=== PATIENT | female | born 1990 | race American Indian/Alaskan Native ===

== ENCOUNTER 2023-05-30 19:06 | Emergency (ER) | payer OTHER ==
[~2023-05-30] VITALS: Ht 160 cm; Wt 76.7 kg
[2023-05-30 20:33] LABS: BASOPHILS 1.3 % (0-2); EOSINOPHILS 1.5 % (0-6); HEMATOCRIT 38.7 % (35.0-50.0); HEMOGLOBIN 12.5 g/dL (12.0-18.0); MCHC 32.5 g/dl (30-36); MCV 77.1 fl (81-99); MONOCYTES 1.7 % (0-12); NEUTROPHILS 87.5 % (39-80); PLATELET COUNT 366 K/uL (140-440); RBC 5.01 M/ul (4.3-5.7); RDW 14.8 (10.5-15.0)
[2023-05-30 20:49] LABS: ALBUMIN 3.7 g/dL (3.4-5.0); ALBUMIN/GLOBULIN RATIO 0.82 (1.1-2.4); ANION GAP 11.5 (7-21); BILIRUBIN, TOTAL 0.7 ng/dL (0.2-1.0); BUN/CREATININE RATIO 25.86 (6.0-28.6); CALCIUM 8.3 mg/dL (8.5-10.1); CREATININE, SERUM 0.58 mg/dL (0.55-1.02); MAGNESIUM 1.9 mg/dL (1.8-2.4); POTASSIUM 3.5 mmol/L (3.5-5.1); PROTEIN, TOTAL 8.2 g/dL (6.4-8.2)
[2023-05-30 21:11] LABS: BILIRUBIN, URINE NEGATIVE (negative); BLOOD/HGB, URINE NEGATIVE (Negative); KETONE, URINE NEGATIVE (Negative); LEUK ESTERASE, URINE NEGATIVE (negative); NITRITE, URINE NEGATIVE (negative)
[2023-05-30 21:12] LABS: AMPHETAMINES, UR NEGATIVE (NEGATIVE); BARBITURATES, UR NEGATIVE (NEGATIVE); BENZODIAZEPINES, UR NEGATIVE (NEGATIVE); BUPRENORPHINE,UR NEGATIVE (NEGATIVE); COCAINE, UR NEGATIVE (NEGATIVE); MARIJUANA (THC), UR NEGATIVE (NEGATIVE); MDMA, UR NEGATIVE (NEGATIVE); METHADONE, UR NEGATIVE (NEGATIVE); METHAMPHETAMINE, UR NEGATIVE (NEGATIVE); OPIATES, UR NEGATIVE (NEGATIVE); OXYCODONE, UR NEGATIVE (NEGATIVE); PHENCYCLIDINE, UR NEGATIVE (NEGATIVE); TRICYCLIC ANTIDEPRESSANT, UR NEGATIVE (NEGATIVE)
[2023-05-30 21:40] LABS: INFLUENZA B NAA NEGATIVE (NEGATIVE); RESPIRATORY SYNCYTIAL VIR NAA NEGATIVE (NEGATIVE)
[2023-05-30 22:30] VITALS: BP 111/59
== END 2023-05-30 22:30 | disposition home or self-care (01) ==
LOC: ED 19:06
PROVIDERS: Internal Medicine
DX: K52.9 Noninfective gastroenteritis and colitis, unspecified (principal); R42 Dizziness and giddiness; R68.83 Chills (without fever); Z20.822 Contact with and (suspected) exposure to COVID-19
CPT/HCPCS: 36415; 80053; 81003; 83735; 84703; 85025; 87502; 96361; 96374; 96375; 99284-25; A9270; C9803; J1885; J2405; J7121; U0002

== ENCOUNTER 2024-06-27 16:03 | Inpatient (IN) | payer OTHER ==
[~2024-06-27] VITALS: Ht 162.6 cm; Wt 93.4 kg
[~2024-06-27 16:03] MED LIST: CEPHALEXIN500 MG PO; VITAFOL-OB+DHA1 EACH PO
[2024-06-28] MEDS ORDERED: LACTATED RINGER'S 1,000 ML IV SCH (06:00)
[2024-06-28] MEDS ORDERED: CALCIUM CARBONATE 500 MG CHEW PO PRN ×2 (06:00→18:00)
[2024-06-28] MEDS ORDERED: OXYTOCIN/0.9 % SODIUM CHLORIDE 500 ML IV SCH ×2 (06:00→18:00)
[2024-06-28] MEDS ORDERED: PENICILLIN G POTASSIUM 5 MUNITS/110 ML PIGGYBACK IV ONE (06:00)
[2024-06-28] MEDS ORDERED: MAGNESIUM HYDROXIDE/AL HYDROX 30 ML CUP PO PRN ×2 (06:00→18:00)
[2024-06-28] MEDS ORDERED: OXYTOCIN/DEXTROSE 5% 20 UNITS/100 ML BAG IV SCH (06:15)
[2024-06-28] MEDS ORDERED: LACTATED RINGER'S 1,000 ML IV PRN (06:15)
[2024-06-28 06:19] VITALS: BP 116/71
[2024-06-28] MEDS ORDERED: TRANEXAMIC ACID IN NACL,ISO-OS 100 ML IV ONE (06:19)
[2024-06-28 06:49] LABS: HEMATOCRIT 38.9 % (35.0-50.0); HEMOGLOBIN 12.7 g/dL (12.0-18.0); MCH 25.7 (27-36); MCHC 32.7 g/dl (30-36); MCV 78.6 fl (81-99); RBC 4.96 M/ul (4.3-5.7); RDW 17.6 (10.5-15.0)
[2024-06-28 07:12] LABS: AMPHETAMINES, URINE NEGATIVE (NEGATIVE); BARBITURATES, URINE NEGATIVE (NEGATIVE); BENZODIAZEPINE, URINE NEGATIVE (NEGATIVE); BUPRENORPHINE, URINE NEGATIVE (NEGATIVE); CANNABINOID, URINE NEGATIVE (NEGATIVE); COCAINE, URINE NEGATIVE (NEGATIVE); ECSTASY, URINE NEGATIVE (NEGATIVE); FENTANYL, URINE NEGATIVE (NEGATIVE); METHADONE, URINE NEGATIVE (NEGATIVE); OPIATES, URINE NEGATIVE (NEGATIVE); OXYCODONE, URINE NEGATIVE (NEGATIVE); PHENCYCLIDINE, URINE NEGATIVE (NEGATIVE)
[2024-06-28 07:30] LABS: ABO O; RH POSITIVE
[2024-06-28 07:31] LABS: ANTIBODY SCREEN NEGATIVE
[2024-06-28] MEDS ORDERED: PENICILLIN G POTASSIUM 2.5 MUNITS in DEXTROSE 5% 100 ML IV SCH (10:00)
--- NOTE | 2024-06-28 12:27 | PR ---
[facility] [address], [place] [address] Signed Progress Notes IP Datetime Report Generated by CPN: 06/28/2024 12:27 PROGRESS NOTES: [id number] Impression: Reassuring Heart Rate Procedures: Sterile Vag Exam Plan: Anesthesia Consult VITAL SIGNS: [id number] EXAM: [id number] Dilatation: 4.0 Effacement: 80 Station: -2 Contractions: q 2 to 4 min MEMBRANES: [id number] ROM Note: Underware Negative with NItrazine paper Comments: Starting to feel the contractions now. She does want an epidural this time. Will place and then proceed with AROM. FETUS A: [id number] FHR Baseline: 130 Variability: Moderate 6-25bpm Accelerations: 15X15 Decelerations: None FHR Category: Category I Presentation: Vertex FETUS B: [id number] Signing Physician: Rebekah Arndt MD Copies: ~ *Electronically Signed* 06/28/24 1227 REBEKAH ARNDT MD PATIENT NAME: FADI RUIZANA PROGRESS NOTE DATE OF : 89 PHYSICIAN: REBEKAH ARNDT MD RPT #: [id number] REPORT IS CONFIDENTIAL AND NOT TO BE RELEASED WITHOUT AUTHORIZATION
[2024-06-28] MEDS ORDERED: fentaNYL citrate 100 MCG/2 ML VIAL ONE (12:33)
[2024-06-28] MEDS ORDERED: LACTATED RINGER'S 2,000 ML IV ONE (12:45)
[2024-06-28] MEDS ORDERED: ROPIVACAINE 0.2% 200 ML BAG EPIDURAL SCH (12:45)
[2024-06-28] MEDS ORDERED: ePHEDrine sulfate 5 MG/ML SYRINGE IV PRN (12:45)
[2024-06-28] MEDS ORDERED: LACTATED RINGER'S 500 ML IV PRN (12:45)
--- NOTE | 2024-06-28 14:33 | PR ---
[facility] [address] [facility] [place], [place] [address] Signed Progress Notes IP Datetime Report Generated by CPN: 06/28/2024 14:33 PROGRESS NOTES: [id number] Impression: Reassuring Heart Rate Procedures: Artificial ROM; Sterile Vag Exam Plan: Continue Present Management VITAL SIGNS: [id number] EXAM: [id number] Dilatation: 4.0 Effacement: 80 Station: -2 Contractions: q 1 to 5 min MEMBRANES: [id number] ROM Note: Underware Negative with NItrazine paper Comments: Comfortable after epidural. Will continue. FETUS A: [id number] FHR Baseline: 130 Variability: Moderate 6-25bpm Accelerations: 15X15 Decelerations: Variable FHR Category: Category II Presentation: Vertex FETUS B: [id number] Signing Physician: Rebekah Arndt MD Copies: ~ *Electronically Signed* 06/28/24 1433 REBEKAH ARNDT MD PATIENT NAME: ANA GOMES PROGRESS NOTE DATE OF : 89 PHYSICIAN: REBEKAH ARNDT MD RPT #: [id number] REPORT IS CONFIDENTIAL AND NOT TO BE RELEASED WITHOUT AUTHORIZATION
[2024-06-28] MEDS ORDERED: LIDOCAINE 2% VISCOUS 6 ML SYR TOP ONE ×2 (18:00)
[2024-06-28] MEDS ORDERED: WITCH HAZEL/GLYCERIN 1 EA PAD TOP PRN (18:00)
[2024-06-28] MEDS ORDERED: ACETAMINOPHEN 325 MG TAB PO PRN (18:00)
[2024-06-28] MEDS ORDERED: HYDROCODONE/ACETA 5/325 TAB PO PRN (18:00)
[2024-06-28] MEDS ORDERED: MAGNESIUM HYDROXIDE 30 ML UDC PO PRN (18:00)
[2024-06-28] MEDS ORDERED: HYDROCORTISONE ACETATE 25 MG SUPP PR PRN (18:00)
[2024-06-28] MEDS ORDERED: BENZOCAINE 60 ML AEROSOL TOP PRN (18:00)
[2024-06-28] MEDS ORDERED: IBUPROFEN 600 MG TAB PO PRN (18:00)
[2024-06-28] MEDS ORDERED: SENNOSIDES/DOCUSATE 1 EA TAB PO SCH (21:00)
[2024-06-29 06:04] LABS: HEMATOCRIT 34.9 % (35.0-50.0); HEMOGLOBIN 11.4 g/dL (12.0-18.0); MCH 25.7 (27-36); MCHC 32.7 g/dl (30-36); MCV 78.6 fl (81-99); RBC 4.43 M/ul (4.3-5.7); RDW 17.5 (10.5-15.0)
--- NOTE | 2024-06-29 08:35 | PR ---
[facility] [address] [facility] [place], [place] [address] Signed PP Progress Notes Datetime Report Generated by CPN: 06/29/2024 08:35 SUBJECTIVE: [id number] Pain: Within Normal Limits Vital Signs: [id number] Vital Signs: Reviewed; Within Normal Limits Cardiovascular: Not Done Respiratory: Not Done Abdomen/Uterus: Abnormal Lochia: Normal Vulva/Perineum: Not Done Breasts: Not Done CVA Tenderness: Not Done Extremities: Normal Incision: Not Applicable Progress: Normal Exam Comments: Fundus firm, NT @ U-2. H/H 11.4/34.9, WBC 13.3, plat 227k IMPRESSION/PLAN/PROCEDURES: [id number] Impression: Normal Progression Plan: Discharge Procedures: None Progress Notes: Doing well. She is ready for D/C. Signing Physician: Rebekah Arndt MD Copies: ~ *Electronically Signed* 06/29/2435 REBEKAH ARNDT MD PATIENT NAME: ANA GOMES PROGRESS NOTE DATE OF : 89 PHYSICIAN: REBEKAH ARNDT MD RPT #: [id number] REPORT IS CONFIDENTIAL AND NOT TO BE RELEASED WITHOUT AUTHORIZATION
== END 2024-06-29 19:29 | disposition home or self-care (01) | DRG 807 ==
LOC: FBC 06-28 06:01
PROVIDERS: Obstetrics & Gynecology; ADMIT Obstetrics & Gynecology; ATTEND Obstetrics & Gynecology
PROC: 10E0XZZ Delivery of Products of Conception, External Approach (ICD-10-PCS; principal; 2024-06-28)
PROC: 3E0R3BZ Introduction of Anesthetic Agent into Spinal Canal, Percutaneous Approach (ICD-10-PCS; 2024-06-28)
PROC: 00HU33Z Insertion of Infusion Device into Spinal Canal, Percutaneous Approach (ICD-10-PCS; 2024-06-28)
PROC: 10907ZC Drainage of Amniotic Fluid, Therapeutic from Products of Conception, Via Natural or Artificial Opening (ICD-10-PCS; 2024-06-28)
DX: O48.0 Post-term pregnancy (principal); Z37.0 Single live birth; O76 Abnormality in fetal heart rate and rhythm complicating labor and delivery; O99.824 Streptococcus B carrier state complicating childbirth; Z3A.40 40 weeks gestation of pregnancy
CPT/HCPCS: 01960; 36415; 80307; 85027; 86850; 86900; 86901; A9270; J2540; J2590; J7121

== ENCOUNTER 2025-01-24 12:10 | Emergency (ER) | payer OTHER ==
[~2025-01-24] VITALS: Ht 152.4 cm; Wt 86.0 kg
[2025-01-24] MEDS ORDERED: KETOROLAC TROMETHAMINE 15 MG/ML VIAL IV ONE (12:30)
[2025-01-24 12:42] LABS: BASOPHILS 0.4 % (0-2); EOSINOPHILS 3.4 % (0-6); HEMATOCRIT 37.8 % (35.0-50.0); HEMOGLOBIN 12.4 g/dL (12.0-18.0); LYMPHOCYTES 10.5 % (24-44); MCHC 32.8 g/dl (30-36); MCV 73.1 fl (81-99); NEUTROPHILS 82.7 % (39-80); PLATELET COUNT 447 K/uL (140-440); RBC 5.17 M/ul (4.3-5.7); RDW 14.9 (10.5-15.0)
[2025-01-24 13:09] LABS: ALBUMIN 3.5 g/dL (3.4-5.0); ALBUMIN/GLOBULIN RATIO 0.76 (1.1-2.4); ALKALINE PHOSPHATASE 230 U/L (46-116); ALT (SGPT) 40 U/L (14-59); ANION GAP 11.7 (7-21); AST (SGOT) 27 U/L (15-37); BILIRUBIN, TOTAL 0.4 mg/dL (0.2-1.0); BUN/CREATININE RATIO 20.27 (6.0-28.6); CALCIUM 8.2 mg/dL (8.5-10.1); CARBON DIOXIDE 28 mmol/L (21-32); CHLORIDE 104 mmol/L (98-107); CREATININE, SERUM 0.74 mg/dL (0.55-1.02); GLOMERULAR FILTRATION RATE,EST 110 mL/min (>60); POTASSIUM 3.7 mmol/L (3.5-5.1); PROTEIN, TOTAL 8.1 g/dL (6.4-8.2); UREA NITROGEN 15 mg/dL (7-18)
[2025-01-24] MEDS ORDERED: CYCLOBENZAPRINE10 MG PO (13:25)
[2025-01-24 13:35] VITALS: BP 106/68
--- NOTE | 2025-01-24 20:12 | EKG ---
[facility] [address] [facility] [place], [place] [address] Signed Normal sinus rhythm Right axis deviation Abnormal ECG Confirmed by Jesus Hameed DO ([id number]) on 01/24/2025 8:12:03 PM Electronically Signed By: JESUS HAMEED DO 01/24/252011 PATIENT NAME: FADI RUIZANA Electrocardiogram DATE OF : 89 PHYSICIAN: JESUS HAMEED DO REPORT #: [id number] REPORT IS CONFIDENTIAL AND NOT TO BE RELEASED WITHOUT AUTHORIZATION
== END 2025-01-24 13:35 | disposition home or self-care (01) ==
LOC: ED 12:10
PROVIDERS: Family Medicine
DX: R07.89 Other chest pain (principal); Z87.891 Personal history of nicotine dependence
CPT/HCPCS: 36415; 71045; 80053; 83735; 84484; 85025; 93005; 93010; 96374; 99285-25; J1885

== ENCOUNTER 2025-03-19 15:16 | Emergency (ER) | payer OTHER ==
[~2025-03-19] VITALS: Ht 152.4 cm; Wt 87.8 kg
[~2025-03-19 15:16] MED LIST changes: +CYCLOBENZAPRINE10 MG PO
[2025-03-19 17:30] LABS: BASOPHILS 0.5 % (0.1-1.2); EOSINOPHILS 9.3 % (0.7-5.8); HEMATOCRIT 35.5 % (34.1-44.9); HEMOGLOBIN 11.1 g/dL (11.2-15.7); LYMPHOCYTES 17.1 % (19.3-51.7); MCH 23.2 PG (25.6-32.2); MCHC 31.3 g/dL (32.2-35.5); MCV 74.3 fL (79.4-94.8); MONOCYTES 4.5 % (4.7-12.5); NEUTROPHILS 67.3 % (34.0-71.1); PLATELET COUNT 379 K/uL (182-369); RBC 4.78 M/uL (3.93-5.22)
[2025-03-19 17:45] LABS: ALBUMIN 3.1 g/dL (3.4-5.0); ALBUMIN/GLOBULIN RATIO 0.7 (1.1-2.4); ANION GAP 12.5 (7-21); BILIRUBIN, TOTAL 0.3 mg/dL (0.2-1.0); BUN/CREATININE RATIO 22.97 (6.0-28.6); CALCIUM 8.4 mg/dL (8.5-10.1); CREATININE, SERUM 0.74 mg/dL (0.55-1.02); POTASSIUM 3.5 mmol/L (3.5-5.1); PROTEIN, TOTAL 7.5 g/dL (6.4-8.2)
[2025-03-19] MEDS ORDERED: ONDANSETRON ODT4 MG PO (18:49)
[2025-03-19] MEDS ORDERED: ONDANSETRON 4 MG TAB ODT SL ONE (19:00)
[2025-03-19 19:08] VITALS: BP 112/73
--- NOTE | 2025-03-19 22:57 | EKG ---
[facility] [address] [facility] [place] [address] Signed Normal sinus rhythm Normal ECG When compared with ECG of 24-JAN-2025 12:12, No significant change was found Confirmed by Trevor Nielsen MD () on 03/19/2025 10:57:29 PM Electronically Signed By: TREVOR NIELSEN MD 03/19/25 2257 PATIENT NAME: FADI RUIZANA Electrocardiogram DATE OF : 89 PHYSICIAN: TREVOR NIELSEN MD REPORT #: [id number] REPORT IS CONFIDENTIAL AND NOT TO BE RELEASED WITHOUT AUTHORIZATION
== END 2025-03-19 19:14 | disposition home or self-care (01) ==
LOC: ED 15:16
PROVIDERS: Emergency Medicine
DX: B34.9 Viral infection, unspecified (principal); R11.2 Nausea with vomiting, unspecified; Z87.891 Personal history of nicotine dependence
CPT/HCPCS: 36415; 71045; 80053; 85025; 93005; 93010; 99285-25; A9270

== ENCOUNTER 2025-05-19 01:33 | Emergency (ER) | payer OTHER ==
[~2025-05-19] VITALS: Ht 152.4 cm; Wt 87.9 kg
[~2025-05-19 01:33] MED LIST changes: +ONDANSETRON ODT4 MG PO
[2025-05-19] MEDS ORDERED: LACTATED RINGER'S 1,000 ML IV ONE (02:00)
[2025-05-19] MEDS ORDERED: ACETAMINOPHEN 500 MG TAB PO ONE ×2 (02:00→04:45)
[2025-05-19 02:04] LABS: BASOPHILS 0.3 % (0.1-1.2); EOSINOPHILS 3.7 % (0.7-5.8); LYMPHOCYTES 8.8 % (19.3-51.7); MCH 23.0 PG (25.6-32.2); MCHC 30.9 g/dL (32.2-35.5); MCV 74.4 fL (79.4-94.8); MONOCYTES 2.2 % (4.7-12.5); NEUTROPHILS 84.1 % (34.0-71.1); RBC 5.27 M/uL (3.93-5.22)
[2025-05-19] MEDS ORDERED: ALBUTEROL/IPRATROPIUM 3 ML NEB INH ONE (02:15)
[2025-05-19 02:16] LABS: SMEAR REVIEW BLOOD SEE COMMENTS
[2025-05-19 02:23] LABS: LACTIC ACID, BLOOD 0.7 mmol/L (0.4-2.0)
[2025-05-19 02:31] LABS: ALT (SGPT) 43 U/L (14-59); AST (SGOT) 22 U/L (15-37); GLOMERULAR FILTRATION RATE,EST 118 mL/min (>60); PROTEIN, TOTAL 8.3 g/dL (6.4-8.2); UREA NITROGEN 12 mg/dL (7-18)
[2025-05-19] MEDS ORDERED: FAMOTIDINE 20 MG/ 2 ML VIAL IV ONE (02:45)
[2025-05-19 02:47] LABS: INFLUENZA B NAA NEGATIVE (NEGATIVE); RESPIRATORY SYNCYTIAL VIR NAA NEGATIVE (NEGATIVE)
[2025-05-19 03:52] LABS: BLOOD/HGB, URINE TRACE-I (Negative); KETONE, URINE NEGATIVE (Negative); LEUK ESTERASE, URINE SMALL (negative); NITRITE, URINE NEGATIVE (negative)
[2025-05-19 03:57] LABS: EPITHELIAL CELLS, URINE SQUAMOUS 4+ /lpf (0-1+)
[2025-05-19 03:58] LABS: BACTERIA, URINE 1+ /hpf (negative); CASTS, URINE NONE SEEN \\lpf; CRYSTALS, URINE NONE SEEN (0-1+); REFLEX CULTURE, URINE No (No)
[2025-05-19 04:09] LABS: AMPHETAMINES, URINE NEGATIVE (NEGATIVE); BARBITURATES, URINE NEGATIVE (NEGATIVE); BENZODIAZEPINE, URINE NEGATIVE (NEGATIVE); CANNABINOID, URINE NEGATIVE (NEGATIVE); COCAINE, URINE NEGATIVE (NEGATIVE); ECSTASY, URINE NEGATIVE (NEGATIVE); FENTANYL, URINE NEGATIVE (NEGATIVE); METHADONE, URINE NEGATIVE (NEGATIVE); OPIATES, URINE NEGATIVE (NEGATIVE); OXYCODONE, URINE NEGATIVE (NEGATIVE); PHENCYCLIDINE, URINE NEGATIVE (NEGATIVE)
[2025-05-19] MEDS ORDERED: LACTATED RINGER'S 1,000 ML IV SCH (05:15)
[2025-05-19 05:22] LABS: LACTIC ACID, BLOOD 0.6 mmol/L (0.4-2.0)
[2025-05-19] MEDS ORDERED: KETOROLAC TROMETHAMINE 30 MG/ML VIAL IV ONE (06:15)
[2025-05-19] MEDS ORDERED: PAXLOVID 300-11 EAC1 PO (06:43)
[2025-05-19] MEDS ORDERED: ONDANSETRON ODT4 MG PO (06:44)
[2025-05-19 07:27] VITALS: BP 97/83
--- NOTE | 2025-05-20 23:03 | EKG ---
[facility] [address] [address] Signed Sinus tachycardia Right axis deviation Abnormal ECG When compared with ECG of 19-MAR-2025 15:23, No significant change was found Confirmed by Trevor Nielsen MD () on 05/20/2025 11:02:55 PM Electronically Signed By: TREVOR NIELSEN MD 05/20/25 2303 PATIENT NAME: FADI CONSTANCEANDRESANA Electrocardiogram DATE OF : 89 PHYSICIAN: TREVOR NIELSEN MD REPORT #: [id number] REPORT IS CONFIDENTIAL AND NOT TO BE RELEASED WITHOUT AUTHORIZATION
== END 2025-05-19 07:27 | disposition home or self-care (01) ==
LOC: ED 01:33
PROVIDERS: Internal Medicine
DX: U07.1 COVID-19 (principal); Z87.891 Personal history of nicotine dependence
CPT/HCPCS: 36415; 71045; 71046; 74177; 80053; 80307; 81001; 83605; 84484; 84703; 85025; 85060; 85379; 87502; 93005; 93010; 94640; 96374; 96375; 99285-25; A9270; J0696; J2405; J7121; Q9967; U0002